=== PATIENT | female | born 1930 | race Caucasian/White ===

== ENCOUNTER 2017-07-31 22:14 | Observation (INO) | payer MEDICARE, OTHER ==
[~2017-07-31] VITALS: Ht 157.5 cm; Wt 73.0 kg
--- NOTE | ~2017-07-31 | H ---
[address] [address] HISTORY AND PHYSICAL Name: VICTORIANO ARGUETA Room: [address] Paulette Guaman#: [id number] Admission: 08/01/17 Attend Phys: Rashad Washington MD, F Discharge: 08/02/17 Date of : 31 Report #: [id number] THIS REPORT FOR: //name// For History and Physical please refer to the consultation note in the patient's medical record. By: 1307Medical Records Staff CELESTINO /PHILIPP
[~2017-07-31 22:14] MED LIST: ACETAMINOPHEN325 M1 PO; ASPIR 8181 MG PO; ASPIRIN325 PO; BISACODYL5 MG PO; CELLCEPT500 MG PO; CHERATUSSIN AC S5 ML PO; CIPRO250 M1 PO; CLONAZEPAM 1 MG1 M1 PO; Cranberry PO; DOXYCYCLINE 10100 M1 PO; DULCOLAX10 MG RECTAL; ECHINACEA PO; ENOXAPARIN30 MG/0.3 SQ; GLUCOPHAGE XR500 MG PO; HYDROCHLOROTHIA25 M2 PO; HYDROCODON-ACE1 EAC7 PO; LEVAQUIN 500 M500 MG PO; LEVOTHYROXIN0.025 MG PO; LEVOTHYROXIN0.137 M1 PO; LISINOPRIL40 MG PO; MESTINON60 MG PO; METFORMIN HCL500 MG PO; NEURONTIN 300300 M1 PO; NORCO 10-325 T1 EACH PO; PYRIDOSTIGMINE60 M1 PO; RESTORIL30 MG PO; TIROSINT150 MCG PO; VITAMIN B-121000 MCG PO; VITAMIN D5000 UNIT PO; [UNRECOGNIZED DRUG - OTHER] PO; [UNRECOGNIZED DRUG - SUPPLY]
[2017-07-31 22:15] VITALS: BP 187/88
[2017-07-31] MEDS ORDERED: CELEBREX 200 M200 M1 PO (22:25)
[2017-07-31] MEDS ORDERED: CELLCEPT500 MG PO (22:26)
[2017-07-31 22:39] LABS: ABSOLUTE BASOPHILS 0.1 thou/uL (0.0-0.2); ABSOLUTE EOSINOPHILS 0.1 thou/uL (0.0-0.7); ABSOLUTE LYMPHOCYTES 1.5 thou/uL (0.8-5.3); ABSOLUTE MONOCYTES 0.6 thou/uL (0.0-1.2); BASOPHILS 0.8 %; EOSINOPHILS 1.1 %; HEMATOCRIT 34.8 % (37.0-47.0); HEMOGLOBIN 11.5 gm/dL (12.0-15.0); LYMPHOCYTES 18.2 %; MCH 30.1 pg (26.0-34.0); MCHC 32.9 g/dL (28.0-37.0); MCV 91.6 fL (80.0-100.0); MONOCYTES 7.2 %; MPV 8.1 fl. (7.2-11.1); NUCLEATED RBCS 0 /100WBC; PLATELET COUNT* 213 thou/uL (150-400); POLYS 72.7 %; RBC 3.81 mil/uL (4.20-5.00); RDW-CV 14.2 % (10.5-14.5); WBC 8.3 thou/uL (4.0-11.0)
[2017-07-31 22:47] LABS: ANION GAP 11 mmol/L (7-16); BUN 22 mg/dL (7-18); CALCIUM 9.1 mg/dL (8.5-10.1); CHLORIDE 104 mmol/L (98-107); CO2 23 mmol/L (21-32); CREATININE 1.1 mg/dL (0.6-1.3); GLUCOSE 184 mg/dL (70-99); INR 1.1; POTASSIUM 4.6 mmol/L (3.5-5.1); PROTIME 10.5 Seconds (9.20-11.50); SODIUM 138 mmol/L (136-145)
[2017-07-31 22:57] LABS: ALBUMIN 3.3 g/dL (3.4-5.0); ALKALINE PHOSPHATASE 69 U/L (46-116); NT-PRO BRAIN NAT PEPTIDE 573 pg/mL (<300); SGOT 12 U/L (15-37); SGPT 15 U/L (30-65); TOTAL BILIRUBIN 0.4 mg/dL (<0.1-1.0); TOTAL PROTEIN 6.8 g/dL (6.4-8.2); TROPONIN-I LEVEL <0.06 ng/mL (<0.06)
[2017-07-31 23:41] LABS: URINE BILIRUBIN NEGATIVE (Negative); URINE BLOOD NEGATIVE (Negative); URINE CLARITY CLEAR; URINE COLOR YELLOW; URINE GLUCOSE-RANDOM NEGATIVE (Negative); URINE KETONES NEGATIVE (Negative); URINE LEUKOCYTES-REFLEX NEGATIVE (Negative); URINE NITRITE-REFLEX NEGATIVE (Negative); URINE PROTEIN NEGATIVE (Negative); URINE SPECIFIC GRAVITY <= 1.005 (1.005-1.030); URINE UROBILINOGEN 0.2 E.U./dl (0.2-1.0)
[2017-08-01] VITALS (15 sets, daily range): BP systolic 107–171; BP diastolic 36–83
--- NOTE | 2017-08-01 06:47 | NUR ---
ADMITTED TO ICU BED 5 @ 0055 FROM [facility] ASSOCIATE POST TEMPORARY PACEMAKER PLACEMENT. R GROIN DRESSING C/D/I, NO BRUISING OR HEMATOMA PRESENT. PT EDUCATED ON INSTRUCTED IMMOBILIZATION OF RLE, VERBALIZED UNDERSTANDING. SEE ASSESSMENT. PT REPORTED SYNCOPAL EPISODE AND FALL ON 07/28/17, BRUISING NOTED TO L UPPER BACK, L ELBOW NOTED TO HAVE MARKED SWELLING AND REDNESS BUT NO OPEN WOUND. PT REPORTED SHE DID NOT SEE HER PHYSICIAN POST FALL. PT EDUCATED FIELD CHECKER LIGHT USE AND ROOM. CALL LIGHT WITHIN REACH.
--- NOTE | 2017-08-01 08:43 | NUR ---
PATIENT CARE ASSUMED AT 0830. REPORT RECIEVED FROM ROYCE REYNOSO. THIS NURSE AGREES WITH PREVIOUS NURSE ASSESSMENT AND CHARTING. PATIENT NOW AOX4, SITTING AT 30 DEGREES IN BED EATING CLEAR LIQUIDS. PROVIDED WITH COFFEE AND SPLENDA. PATIENT EDUCATED SHE CAN HAVE CLEAR LIQUIDS UNTIL 1000, IS IN AGREEMENT WITH THIS. PATIENT DENIES PAIN. TEMP PACER NOTED IN THE RIGHT GROIN SET AT 60, HR ON MONITOR NOTED TO BE 60-68. PERMANENT PACEMAKER INSERTION SCHEDULED FOR 1600, PATIENT AWARE. CONSENT SIGNED. PATIENT DENIES FURTHER NEEDS FROM NURSING AT THIS TIME. WILL CONTINUE WITH TODAY'S OUTLINED PLAN OF CARE.
--- NOTE | 2017-08-01 10:02 | CARD ---
[address] [address] CARDIAC CATH REPORT Name: VICTORIANO ARGUETA Room: [address] IN [facility]#: [id number] Admission: 08/01/17 Attend Phys: Dima Thomas MD Discharge: Date of : 31 Report #: [id number] THIS REPORT FOR: //name// APPROVED REPORT Study performed: 07/31/2017 23:38:21 Patient Status: ED Room #: Event Personnel: Kanika Beltran RN Wood Tool Maker, Rashad Washington Laboratory Engineer, Juan Monroe (R) Monitor, Oli Nagel Scrub Exam: temporary pacemaker Indications: Complete Heart Block The patient is a 86 year-old female with a history of Syncope. Conscious Sedation No Sedation Given Implanted Devices: 6 fr temporary pacemaker Procedure The patient underwent informed consent. We discussed the details of the procedure including the risks, which include, but not limited to bleeding, infection, vascular damage, cardiac perforation, and pneumothorax. She understood these risks and was willing to proceed. As such, she was brought to the EP/Cardiac Catheterization laboratory in a fasting and sedated state and prepped and draped in a Sheaths were positions using the modified Seldinger technique Capturing and sensing thresholds were verified. Temporary pacing lead was advanced to the apex of the RV under fluoroscopy. Electrode Parameters Ventricular Threshold: less than 1 mA Complications The patient tolerated the procedure well and there were no complications associated with the procedure. Findings Estimated Blood Loss: less than 5 cc The lead was secured in place [place] [id number] CARDIAC CATH REPORT Name: KENDALLVICTORIANO Yahir Room: [address]#: [id number] Admission: 08/01/17 Attend Phys: Dima Thomas MD Discharge: Date of : 31 Report #: [id number] Conclusion Successful placement of a bipolar temporary pacing lead placed throught the right femoral vein under fluoroscopy. Recommendations Plan placement of a permanent pacemaker generator and leads. <ELECTRONICALLY SIGNED> By: Rashad Washington MD, FACC 08/01/17 1002 1002 1002Rashad Washington MD, FACC /INF
--- NOTE | 2017-08-01 13:02 | NUR ---
PATIENT 100% ON 2L NC, TITRATED OFF, NOW 97% ON ROOM AIR.
--- NOTE | 2017-08-01 14:36 | 2DMMODE ---
[place] [id number] 2 D/M-MODE ECHOCARDIOGRAM Name: VICTORIANO ARGUETA Yahir Room: [address] IN .R.#: [id number] Admission: 08/01/17 Attend Phys: Dima Thomas, Discharge: Date of : 31 Date of Service: 08/01/17 1436 Report #: [id number] THIS REPORT FOR: //name// APPROVED REPORT Study performed: 08/01/2017 09:58:03 EXAM: Comprehensive 2D, Doppler, and color-flow Echocardiogram Patient Location: Bedside BSA: 1.74 HR: 60 bpm BP: 139/46 mmHg Other Information Study Quality: Fair Indications Arrhythmia 2D Dimensions LVEF(%): 59.42 (>50%) IVSd: 16.37 (7-11mm) LVOT Diam: 18.47 (18-24mm) LVDd: 36.68 mm PWd: 11.21 (7-11mm) Ascending Ao: 29.53 (22-36mm) LVDs: 25.35 (25-40mm) Aortic Root: 29.02 mm Metz's LVEF: 59.42 % Volumes Left Atrial Volume (Systole) LA ESV Index: 42.60 mL/m2 Aortic Valve AoV Peak Wallace.: 2.05 m/s AO Peak Gr.: 16.76 mmHg LVOT Max P.89 mmHg AO Mean Gr.: 10.01 mmHg LVOT Mean P.42 mmHg LVOT Max V: 0.85 m/s AO V2 VTI: 44.24 cm LVOT Mean V: 0.54 m/s JEY (VTI): 1.51 cm2 LVOT V1 VTI: 24.88 cm Mitral Valve E/A Ratio: 1.87 MV Decel. Time: 229.99 ms MV E Max Wallace.: 0.76 m/[place] [id number] 2 D/M-MODE ECHOCARDIOGRAM Name: VICTORIANO ARGUETA Yahir Room: [address] IN [facility].#: [id number] Admission: 08/01/17 Attend Phys: Dima Thomas, Discharge: Date of : 31 Date of Service: 08/01/17 1436 Report #: [id number] PHT: 66.70 ms MVA (PHT): 3.30 cm2 TDI E/Lateral E': 10.86 E/Medial E': 7.60 Medial E' Wallace.: 0.10 m/s Lateral E' Wallace.: 0.07 m/s Pulmonary Valve PV Peak Wallace.: 0.81 m/s PV Peak Gr.: 2.65 mmHg Tricuspid Valve RAP Estimate: 5.00 mmHg TR Peak Gr.: 25.11 mmHg RVSP: 30.11 mmHg PA Pressure: 30.11 mmHg Left Ventricle The left ventricle is normal size. There is normal LV segmental wall motion. Borderline concentric left ventricular hypertrophy. Left ventricular systolic function is normal. LVEF is 55%. Right Ventricle The right ventricle is normal size. The right ventricular systolic function is normal. Atria Left atrium is borderline dilated. The right atrium size is normal. Aortic Valve The Aortic valve is sclerotic. No aortic regurgitation is present. No hemodynamically significant valvular aortic stenosis. Mitral Valve Mild mitral annular calcification. There is no mitral valve regurgitation noted. No evidence of mitral valve stenosis. Tricuspid Valve The tricuspid valve is normal in structure. Trace tricuspid regurgitation. Pulmonic Valve The pulmonary valve is normal in structure. There is no pulmonic valvular regurgitation[place] [id number] 2 D/M-MODE ECHOCARDIOGRAM Name: VICTORIANO ARGUETA Room: [address]#: [id number] Admission: 08/01/17 Attend Phys: Dima Thomas, Discharge: Date of : 31 Date of Service: 08/01/17 1436 Report #: [id number] The aortic root is normal in size. IVC is normal in size and collapses with >50% inspiration Pericardium There is no pericardial effusion. <Conclusion> The left ventricle is normal size. Borderline concentric left ventricular hypertrophy. Left ventricular systolic function is normal. LVEF is 55%. The right ventricle is normal size. Left atrium is borderline dilated. The Aortic valve is sclerotic. No aortic regurgitation is present. No hemodynamically significant valvular aortic stenosis. Mild mitral annular calcification. There is no mitral valve regurgitation noted. No evidence of mitral valve stenosis. The tricuspid valve is normal in structure. Trace tricuspid regurgitation. IVC is normal in size and collapses with >50% inspiration There is no pericardial effusion. There is normal LV segmental wall motion. <ELECTRONICALLY SIGNED> By: Pipe Solano MD, FACC 08/01/17 1436 1436 1436 Pipe Solano MD, FACC /INF
--- NOTE | 2017-08-01 16:01 | NUR ---
PATIENT LEFT THE UNIT AT 1555 BY BED WITH TWO RNS FOR CARDIAC PACEMAKER IMPLANTATION.
--- NOTE | 2017-08-01 17:43 | NUR ---
PATIENT RETURNED FROM MIS SPECIALIST AT 1730. PATIENT AOX4, DENIES PAIN. REINFORCED POST CARDIAC PACEMAKER INFORMATION, INCLUDING LAYING FLAT FOR THE REMAINING 30 MINUTES, NOT LIFTING ARM OVER HEAD AT THIS TIME. BLOOD GLUCOSE 141. HEART HEALTHY DIET ORDERED. RIGHT GROIN SITE FROM SHEATH REMOVAL COVERED WITH GAUZE AND TRANSPARENT DRESSING. SOFT, NO HEMATOMA NOTED. NO DRAINAGE TO DRESSING. PATIENT DOWNGRADED TO TELEMETRY STATUS. DENIES FURTHER NEEDS FROM NURSING AT THIS TIME.
--- NOTE | 2017-08-01 18:19 | NUR ---
PATIENT SITTING UP EATING DINNER. ONLY COMPLAINT IS HEADACHE RATED AT 2/10. PRN TYELNOL GIVEN. ALLOWED TO SIT UP, CRISTINA SITE REMAINS SOFT WITH NO DRIANAGE. BANDAGE TO LEFT UPPER ARM REMAINS INTACT/DRY. PATIENT AGREEABLE TO NOT LIFTING LEFT ARM. DENIES FURTHER NEEDS FROM NURSING AT THIS TIME.
--- NOTE | 2017-08-01 18:42 | EKG ---
[place] [address] ELECTROCARDIOGRAM REPORT Name: VICTORIANO ARGUETA Room: [address] IN [facility]#: [id number] Admission: 08/01/17 Attend Phys: Rashad Washington MD, F Discharge: Date of : 31 Report #: [id number] THIS REPORT FOR: //name// [facility] ED Test Date: 2017-07-31 Test Time: 22:20:36 Pat Name: VICTORIANO ARGUETA Department: Room: Gender: F Banking Specialist: SANDRA Koo : 1930 Requested By: Iliana Fuentes Order Number: [id number] MD: Pipe Solano Measurements Intervals [place] Rate: 42 P: 0 [place]: QRS: -56 QRSD: 150 T: 103 QT: 498 QTc: 417 Interpretive Statements 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
--- NOTE | 2017-08-01 19:03 | NUR ---
RECIEVED REPORT. PT TRANSFERRED TO ROOM 233 WITH ALL PERSONAL BELONGINGS. PT ON RA. PT ALERT AND ORIETNED TO ROOM AND CALL LIGHT. ARM SLING TO LEFT ARM IN PLACE. CARDIAC MONTORING IN PLACE. PT DENIES ANY COMPLAINTS OF PAIN OR DISCOMFORT. CALL LIGHT IS WITHIN REACH. WILL CONTINUE TO MONITOR.
[2017-08-02] VITALS: BP 109/77
[2017-08-02 04:00] VITALS: BP 152/58
--- NOTE | 2017-08-02 05:27 | NUR ---
ASSUMED CARE AROUND 1930. PT A/OX4 AND PLEASANT, FORGETFUL AT TIMES. EDUCATED ON LEFT ARM SLING AND PPM PRECAUTIONS. LEFT CHEST DRSG C/D/I, SLIGHT BRUISING BELOW DRSG BUT NO HEMATOMA OR BLEEDING NOTED. TELE MONITOR TRACING SR/BBB. ON ROOM AIR. IV SALINE LOCKED. CASAS D/C'ED LAST NIGHT, UP SBA TO VOID TONIGHT. REPORTED PAIN AT PM SITE- PRN MEDS GIVEN AND PAIN RELIEVED. VSS. CALL LIGHT IN REACH, BEDALARM IN PLACE, WILL CONTINUE WITH PLAN OF CARE.
[2017-08-02 07:57] VITALS: BP 152/58
[2017-08-02 08:00] VITALS: BP 173/62
[2017-08-02 11:25] VITALS: BP 124/56
--- NOTE | 2017-08-02 11:30 | NUR ---
MET WITH PT TO DISCUSS HOME SITUATION/DC PLANNING. PT LIVES ALONE. HAS FRIEND PREM WHO IS HER DPOA AND NEIGHBOR. SHE PROVIDES TRANSPORTATION FOR PT WELL CHECKS ON HER FREQUENTLY. PT HAS A WALKER AND HAD A LIFELINE, BUT STATES SOMEONE CHARGED UP HER CREDIT CARD AFTER SHE GOT IT AND SHE CANCELED IT. PT HAS HAD HH IN THE PAST AND BEEN TO SNF. SHE WOULD LIKE HH AGAIN, DISCUSSE OPTIONS, HAD NO PREFERENCE. SET UP SPECIALIZED HOME CARE. PT AWARE THEY WILL CALL HER AND COME OUT. DENIES OTHER NEEDS.
--- NOTE | 2017-08-02 12:20 | NUR ---
ASSUMED CARE OF PATIENT THIS AM AT 0730. PATIENT IS ALERT ORIENTED X 4. SHE DENIES PAIN THIS AM. PATIENT HAS BEEN UP TO THE BATHROOM AND IN THE CHAIR THIS AM. DR CARLOSON IN TO ROUND AND DISCHARGE PLANNED FOR TODAY. DR NOTIFIED TO COMPLETE ORDERS. TELE SHOWS SR WITH [employer]. PATIENT IS TO DISCHARGE TO HOME WITH HOME HEALTH. NO FALLS OR INJURY. BLOOD SUGARS CONTROLLED WITH SQ INSULIN. PACEMAKER SITE D&I.
[2017-08-02 13:16] VITALS: BP 152/58
--- NOTE | 2017-08-03 14:13 | CON ---
[address] [address] CONSULTATION Name: VICTORIANO ARGUETA Room: [address] Paulette Guaman#: [id number] Admission: 08/01/17 Attend Phys: Rashad Washington MD, F Discharge: 08/02/17 Date of : 31 Report #: [id number] THIS REPORT FOR: //name// CC: Dima Alvarez DATE OF SERVICE: 08/01/2017 CARDIOLOGY CONSULTATION HISTORY OF PRESENT ILLNESS: The patient is an 86-year-old single white female who I was asked to see in the Emergency Room after she complained of syncope. The patient has a history of myasthenia gravis. She had previous thymectomy at [facility] back in 2000. She has been followed by Neurology since that time. She has been a patient at pain clinic here at [facility] because of chronic back pain. She had previous surgery on her ankle in the past. Her last hospitalization was in 2016 for breast cancer when she had lumpectomy. She is not very active because of her age. She uses a walker. However, she still lives by herself. She had lightheaded spells last several months. Today, she was sitting at home when she apparently had a syncopal spell. Paramedics were called. She was brought to the Emergency Room. In the Emergency Room, she was noted to have complete heart block. She is also having pauses lasting several seconds. I was asked to see her on an emergent basis. She denies history of myocardial infarction or chest pain. She denies any exertional dyspnea, fever. She has noticed her heart racing. PAST MEDICAL HISTORY: Significant for partial mastectomy, hysterectomy, cataract extraction, hypertension, diabetes. MEDICATIONS: Consists of metformin, Celebrex, CellCept, lisinopril/HCTZ, Restoril, Synthroid, hydrocodone, aspirin. ALLERGIES: SHE HAS A PREVIOUS INTOLERANCE TO MORPHINE. FAMILY HISTORY: Negative for heart disease. SOCIAL HISTORY: She is . She has 5 children. She uses a walker, lives in [place], [place] by herself. No smoking or alcohol abuse. REVIEW OF SYSTEMS: She has had no history of stroke, asthma, peptic ulcer disease, liver disease, kidney disease. PHYSICAL EXAMINATION: GENERAL: Revealed an elderly female, lying in bed. She appeared in no distress. VITAL SIGNS: She had a blood pressure of 160/90, pulse is 60 regular, [place] [address] CONSULTATION Name: VICTORIANO ARGUETA Room: [address]#: [id number] Admission: 08/01/17 Attend Phys: Rashad Washington MD, F Discharge: 08/02/17 Date of : 31 Report #: [id number] respirations nonlabored. HEENT: She is edentulous. Anicteric. Conjunctivae pale. Mucous membranes moist. NECK: Veins do not appear distended. CHEST: Clear to auscultation. CARDIAC EXAMINATION: Regular rate and rhythm, grade 2 systolic ejection murmur. ABDOMEN: Soft. EXTREMITIES: No pitting edema. Dorsalis pedis pulse 2+ in the right, cannot palpate in the left. SKIN: Cool and dry. NEUROLOGIC: Nonfocal. DIAGNOSTIC DATA: ECG shows high-degree AV block with left axis and right bundle branch block. Her workup in the Emergency Room, she had a portable chest x-ray that showed a normal heart size and clear lung farmer. Calcified lymph nodes, evidence of previous sternotomy. She had lab work done, sodium 138, BUN 22, creatinine 1.1, glucose 184. Liver function studies were normal. Troponin 0.06. BNP 573. White blood cell count 8.3, hemoglobin 11.5. IMPRESSION AND RECOMMENDATIONS: 1. Complete heart block. Recommend temporary pacemaker. 2. Syncope, suspect secondary to complete heart block. 3. Hypertension. The patient has been on an VICKY inhibitor and diuretic. 4. Diabetes. 5. Myasthenia gravis. Previous thymectomy and Mestinon use. 6. History of breast cancer. <ELECTRONICALLY SIGNED> By: Rashad Washington MD, FACC 08/03/17 1413 0056 0118Dajohn Washington MD, FACC /nt
--- NOTE | 2017-08-03 18:09 | NUR ---
Follow up phone call completed, she is doing well, has all her medications, pacemaker insertion site is healing well and the home healthy nurse has seen today. She had no questions or concerns for me.
--- NOTE | 2017-08-11 16:57 | CARD ---
[address] [address] CARDIAC CATH REPORT Name: VICTORIANO ARGUETA Room: [address] Paulette Guaman#: [id number] Admission: 08/01/17 Attend Phys: Rashad Washington MD, F Discharge: 08/02/17 Date of : 31 Report #: [id number] THIS REPORT FOR: //name// APPROVED REPORT Study performed: 08/01/2017 15:41:04 Patient Status: In-Patient Room #: Event Personnel: Bety Domínguez RN RN, Rupinder Caceres, Juan Monroe (Isabel Rodríguez Michael Fortune Teller Exam: Insertion of Dual Chamber Permanent Pacemaker Indications: complete heart block The patient is a 86 year-old female with a history of complete heart block. Conscious Sedation Start time: 16: End Time: 16:50 Fentanyl --25 mcg Implanted Devices: Biotronik Eluna 8 DRT ProMRI, model #157854, serial #[id number] dual-chamber pulse generator Biotronik Solia S 53, model #822359, serial #[id number] atrial lead Biotronik Solia S 60, model #048370, serial #[id number] ventricular lead Procedure The patient underwent informed consent. We discussed the details of the procedure including the risks, which include, but not limited to bleeding, infection, vascular damage, cardiac perforation, and pneumothorax. She understood these risks and was willing to proceed. As such, she was brought to the EP/Cardiac Catheterization laboratory in a fasting and sedated state and prepped and draped in a sterile fashion, received IV antibiotics prior to initiation of the procedure and a venogram was performed showing patency of the left axillary vein. The patient underwent conscious sedation, with no related complications. The patient was brought to the EP/Cardiac Catheterization laboratory and the left chest and shoulder were prepped and draped in a sterile manner. During this case, Fluoroscopy and visipaque 20cc were used for imaging. The left subclavian region was infiltrated with 2% [place] [address] CARDIAC CATH REPORT Name: VICTORIANO ARGUETA Room: [address]#: [id number] Admission: 08/01/17 Attend Phys: Rashad Washington MD, F Discharge: 08/02/17 Date of : 31 Report #: [id number] subcutaneous anesthesia. A transverse incision was made in the left upper chest cavity. The subcutaneous pocket was formed via blunt dissection. Percutaneous venous access was achieved and an introducer sheath was inserted into the left Subclavian vein. After informed consent was obtained the area of the left chest was prepped and draped in sterile fashion. Local anesthesia was achieved with 1% lidocaine. Next after an initial incision was made a device pocket was formed over the left pectoralis muscle using electrocautery and blunt dissection. The left subclavian vein was then accessed using a micropuncture kit. Ultimately a safety J guidewire was advanced to the area of the right atrium under fluoroscopic guidance. The guidewire was secured externally with a Maureen forcep. The micropuncture kit was utilized a second time to access the left subclavian vein and a second safety J guidewire ultimately advanced to the area of the right atrium under fluoroscopic guidance. A 7 Mauritanian tear-away introducer was advanced over the free guidewire. The dilator and guidewire were removed and a ventricular lead advanced to a secure position within the right ventricle under fluoroscopic guidance. The lead was actively fixed. Thresholds were checked and deemed to be satisfactory. Pacing impedances were adequate. There was no diaphragmatic stimulation with maximum output pacing. The tear-away introducer was then removed. Next a second 7 Mauritanian tear-away introducer was advanced over the remaining guidewire. An atrial lead was advanced to a secure position within the right atrial appendage. The lead was actively fixed. Thresholds were checked and deemed to be satisfactory. Pacing impedances were adequate. There was no phrenic nerve stimulation with maximum output pacing. The tear-away introducer was then removed. After adequate slack was assured and the atrial and ventricular leads the leads were then secured within the device pocket using the designated cuffs and interrupted stitches of 2-0 silk suture. The pacemaker pocket was then flushed with antibiotic solution. A dual-chamber pacing generator was attached to the atrial and ventricular lead. The generator and redundant lead were then placed within the device pocket. The deep tissues were then closed using interrupted stitches of 2-0 Vicryl. The skin incision was then closed with a single subcuticular stitch of 4-0 Vicryl. Several Steri-Strips were placed across the incision. A sterile Telfa dressing was then covered with a Tegaderm. The patient tolerated the procedure well without complication. Electrode Parameters P Wave: 2.40 mV R Wave: 4.90 mV Atrial Threshold: 1.2 V at 0.40 ms Ventricular Threshold: 0.60 V [place] 0[place]40 [place] [address] CARDIAC CATH REPORT Name: VICTORIANO ARGUETA Room: [address] Paulette MTaraR.#: [id number] Admission: 08/01/17 Attend Phys: Rashad Washington MD, F Discharge: 08/02/17 Date of : 31 Report #: [id number] Atrial Resistance: 409 Ventricular Resistance: 799 ohms Mode: DDD/CLS Lower rate: 60 bpm Upper tracking rate: 130 bpm Mode switch rate: 160 bpm Complications The patient tolerated the procedure well and there were no complications associated with the procedure. Conclusion 1. Complete heart block 2. Successful placement of a dual-chamber pacemaker with atrial and ventricular lead placement Recommendations 1. Follow-up site check in one week 2. Follow-up pacemaker interrogation one month <ELECTRONICALLY SIGNED> By: Milan Hall MD, FACC 08/11/171655 55 55[facility] Hall MD, FACC /INF
== END 2017-08-02 14:16 | disposition home or self-care (01) ==
LOC: M.ERS 22:14 → M.2W 08-01 00:28 → M.ICU 08-01 00:28 → M.2W 08-01 00:28 → M.TBA-ER 08-01 00:28 → M.ICU 08-01 00:55 → M.2W 08-01 19:02
PROVIDERS: Emergency Medicine; ADMIT Internal Medicine Cardiovascular Disease
DX: I44.2 Atrioventricular block, complete (principal); E11.9 Type 2 diabetes mellitus without complications; I10 Essential (primary) hypertension; E03.9 Hypothyroidism, unspecified; G70.00 Myasthenia gravis without (acute) exacerbation; G89.29 Other chronic pain; M54.9 Dorsalgia, unspecified; Z98.890 Other specified postprocedural states; Z90.710 Acquired absence of both cervix and uterus; Z85.3 Personal history of malignant neoplasm of breast; Z90.12 Acquired absence of left breast and nipple; Z90.49 Acquired absence of other specified parts of digestive tract

== ENCOUNTER → 2019-11-05 | Day surgery (SDC) | payer MEDICARE, OTHER ==
[~2019-11-05] MED LIST changes: +B COMPLEX1 EACH PO; +CELEBREX 200 M200 M1 PO; +LEVOXYL137 MCG PO; +METFORMIN HCL500 M3 PO; +MOBIC7.5 MG PO; +NORVASC5 MG PO; +VITAMIN C500 M1 PO
--- NOTE | ~2019-11-05 | PROC ---
[facility] [address] [place] [address] PROCEDURE REPORT Name: VICTORIANO ARGUETA Room: [facility].#: [id number] Admission: 11/05/19 Attend Phys: Jamaica Roe MD Discharge: Date of : 31 Report #: [id number] THIS REPORT FOR: //name// cc: Rashad Alvarez MD, David L. MD ~ THIS REPORT FOR: //name// For GI report, please see the Provation report in Perceptive 7 content. By: 0645Medical Records Staff CELESTINO /PHILIPP
[2019-11-05 09:22] LABS: HEMATOCRIT 31.9 % (37.0-47.0); HEMOGLOBIN 10.4 gm/dL (12.0-15.0); MCH 27.3 pg (26.0-34.0); MCHC 32.5 g/dL (28.0-37.0); MCV 84.1 fL (80.0-100.0); MPV 7.6 fl. (7.2-11.1); RBC 3.8 mil/uL (4.20-5.00); RDW-CV 17.2 % (10.5-14.5); WBC 9.7 thou/uL (4.0-11.0)
[2019-11-05 09:30] LABS: CALCIUM 9.7 mg/dL (8.5-10.1); CREATININE 1.1 mg/dL (0.6-1.3); POTASSIUM 4.1 mmol/L (3.5-5.1)
--- NOTE | 2019-11-05 15:06 | EKG ---
[place] [address] ELECTROCARDIOGRAM REPORT Name: VICTORIANO ARGUETA Room: [facility]#: [id number] Admission: 11/05/19 Attend Phys: Jamaica Roe MD Discharge: Date of : 31 Date of Service: 11/05/19926 Report #: [id number] THIS REPORT FOR: //name// [facility] Test Date: 2019-11-05 Test Time: 09:27:21 Pat Name: VICTORIANO ARGUETA Department: Room: Gender: F Property Damage Claims Adjustor: : 1930 Requested By: Adilson Brand Order Number: [id number] Reading MD: Pipe Solano Measurements Intervals [place] Rate: 67 P: [place]: 155 QRS: -62 QRSD: 160 T: 116 QT: 451 QTc: 476 Interpretive Statements Atrial-paced rhythm Nonspecific IVCD with left axis deviation Compared to ECG 07/31/2017 22:20:36 Intraventricular conduction delay now more pronounced Early repolarization now present AV block, complete (third-degree) no longer present Electronically Signed On 11-05-2019 15:06:08 CDT by Pipe Solano [email or web address] <ELECTRONICALLY SIGNED> By: Pipe Solano MD, FAC 11/05/19 1506 6 6 Pipe Solano MD, FAC /EPI
--- NOTE | 2019-11-07 17:06 | PATH ---
[facility] [address] [place] [address] PATHOLOGY RPT PROCEDURE Name: LISETTE ARGUETA [id number] Admission: 11/05/19 Date of : 32 Discharge: Report #: [id number] Path Case #: [id number] [facility] Accession Number: [id number] . 01 Material submitted: . stomach - GASTRIC BIOPSIES FOR GASTRITIS . 01 Clinical history: . DYSPHAGIA, EPIGASTRIC PAIN . 02 Diagnosis: Gastric biopsies: - Severe nonspecific chronic gastritis, negative for Helicobacter pylori organisms and dysplasia. (TRINA:renee; 11/07/2019) . Special stain: H. pylori immuno MBR 11/07/2019 1100 Local . 02 Electronically signed: . Javed Navarrete MD, Pathologist NPI- [id number] . 01 Gross description: . The specimen is received in formalin, labeled "Carley, Lisette, gastric biopsies" and consists of 4 fragments of pink-trin[place] tissue measuring between 0.2 x 0.2 cm and 0.5 x 0.2 cm which are entirely submitted in A1. (SDY; 11/06/2019) SYU/SYU 11/06/2019 1215 Local . 02 Pathologist provided ICD-10: K29.50 . 02 CPT . 335303, T00111 Specimen Comment: A courtesy copy of this report has been sent to [phone], [phone] Specimen Comment: [phone] Specimen Comment: Report sent to / DR SOTO Performed at: [address], [place], [place] [id number] MD Kennedy Curry MD Phone: [phone] Performed at: 02 [facility] [address], [place], [place] [id number] MD Javed Navarrete MD Phone: [phone]
== END | disposition home or self-care (01) ==
LOC: M.SUR 08:51 → EDSTATUS 09:25
PROVIDERS: Anesthesiology; ATTEND Internal Medicine Gastroenterology
DX: R13.10 Dysphagia, unspecified (principal); R10.13 Epigastric pain; R63.4 Abnormal weight loss; K21.9 Gastro-esophageal reflux disease without esophagitis; K44.9 Diaphragmatic hernia without obstruction or gangrene; K31.89 Other diseases of stomach and duodenum; K29.50 Unspecified chronic gastritis without bleeding; Z79.899 Other long term (current) drug therapy; Z79.82 Long term (current) use of aspirin; Z88.8 Allergy status to other drugs, medicaments and biological substances; Z98.890 Other specified postprocedural states